=== PATIENT | male | born 1960 | race Caucasian/White ===

== ENCOUNTER 2019-02-15 08:37 | Outpatient (CLI) | payer OTHER ==
[2019-02-15 10:06] LABS: ALBUMIN 4.2 g/dL (3.4-5.0); ANION GAP 11.3 (8-16); BASOPHILS % (AUTO) 0.7 % (0.0-2.0); CARBON DIOXIDE 30.8 mmol/L (21-32); CREATININE 0.9 mg/dL (0.7-1.3); EOSINOPHILS # (AUTO) 0.1 K/uL (0-0.4); EOSINOPHILS % (AUTO) 1.4 % (0.0-4.0); HEMATOCRIT 43.6 % (36-52); HEMOGLOBIN 14.7 g/dL (12.0-18.0); LYMPHOCYTES # (AUTO) 1.3 K/uL (2.0-11.5); LYMPHOCYTES % (AUTO) 20.8 % (20.5-51.1); MEAN CORPUSCULAR HEMOGLOBIN 29 pg (27-31); MEAN CORPUSCULAR HGB CONC 34 g/dL (33-37); MEAN CORPUSCULAR VOLUME 85.3 fL (80-94); MONOCYTES # (AUTO) 0.5 K/uL (0.8-1.0); MONOCYTES % (AUTO) 7.6 % (1.7-9.3); NEUTROPHILS # (AUTO) 4.5 K/uL (1.8-7.7); NEUTROPHILS % (AUTO) 69.5 % (42.2-75.2); PLATELET COUNT (AUTO) 110 K/uL (140-450); POTASSIUM 5.1 mmol/L (3.5-5.1); RED BLOOD CELL COUNT(AUTO) 5.11 MIL/uL (4.20-6.10); RED CELL DISTRIBUTION WIDTH 14.3 % (11.6-13.7); TOTAL BILIRUBIN 0.8 mg/dL (0.0-1.0); WHITE BLOOD COUNT (AUTO) 6.5 K/uL (4.8-10.8)
[2019-02-15 10:27] LABS: CHOL/HDL RATIO 3.3 (1-4.5)
== END 2019-02-15 20:32 | disposition home or self-care (01) ==
LOC: MLB 08:37
DX: E11.9 Type 2 diabetes mellitus without complications (principal); I10 Essential (primary) hypertension; E78.2 Mixed hyperlipidemia; E55.9 Vitamin D deficiency, unspecified; E66.01 Morbid (severe) obesity due to excess calories; E53.8 Deficiency of other specified B group vitamins
CPT/HCPCS: 36415; 80053; 82306; 82607; 83036; 85025